=== PATIENT | male | born 1995 | race Caucasian/White ===

== ENCOUNTER 2024-09-06 09:38 | Emergency (ER) | payer OTHER, SELFPAY ==
[2024-09-06 09:43] VITALS: BP 144/95; PULSE 63; RESP 20; TEMP 36.6; O2SAT 98; BMI 26.5
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
[2024-09-06] MEDS: IBUPROFEN 200 MG TABLET 600 MG PO (10:50)
[2024-09-06 11:02] LABS: Basophils Percent Auto 0.4 % (0.0-3.0); Eosinophils Percent Auto 0.8 % (0.0-7.0); Hematocrit 48.6 % (37.0-53.0); Hemoglobin* 16.4 gm/dL (13.5-17.5); Immature Granulocytes Pct Auto 0.2 %; Lymphocytes Percent Auto 15.5 % (20-44); Mean Corpuscular HGB Conc 34 gm/dL (32-36); Mean Corpuscular Hemoglobin 30 pg (26-34); Mean Corpuscular Volume 88 fL (80-100); Monocytes Percent Auto 8.3 % (0.0-11.0); Neutrophils Percent Auto 74.8 % (42.0-72.0); Platelet Count* 282 K/uL (140-440); RDW Coefficient of Variation % 12.7 % (11.5-15.5); Red Blood Count 5.51 m/uL (4.30-5.90); White Blood Count* 13.07 K/uL (4.50-11.00)
[2024-09-06 11:04] LABS: Slide Review Reflex No
[2024-09-06 11:16] LABS: Chloride* 105 mmol/L (96-114); Potassium* 4.1 mmol/L (3.6-5.1); Sodium* 141 mmol/L (135-149)
[2024-09-06 11:18] LABS: Creatinine* 0.8 mg/dL (0.5-1.5); Est. Creatinine Clearance* 146.42; Estimated Glomerular Filt Rate 124 ml/min
[2024-09-06 11:19] LABS: Anion Gap 11 mEq/L (7-15); Blood Urea Nitrogen* 20 mg/dL (5-24); Calcium* 9.4 mg/dL (8.4-10.6); Carbon Dioxide* 25 mmol/L (20-32); Glucose* 91 mg/dL (60-115)
[2024-09-06 11:40] LABS: INR 1.01 (0.91-1.10); Prothrombin Time 13.9 Seconds
== END 2024-09-06 12:41 | disposition home or self-care (01) ==
PROVIDERS: Emergency Provider Emergency Medicine
DX: S22.009A Unspecified fracture of unspecified thoracic vertebra, initial encounter for closed fracture (principal); V48.5XXA Car driver injured in noncollision transport accident in traffic accident, initial encounter
CPT/HCPCS: 36415; 70450; 71260; 72125; 72128; 80048; 85025; 85610; 99284; 99285; A9270; Q9967

== ENCOUNTER 2024-12-14 13:39 | Emergency (ER) | payer OTHER, SELFPAY ==
[2024-12-14 13:57] VITALS: BP 128/73; PULSE 59; RESP 18; TEMP 36.6; O2SAT 98; BMI 23.4
--- NOTE | 2024-12-14 14:12 | CRLHL7_ITS ---
For Patients: As a result of the Century Cures Act, medical imaging exams and procedure reports are released immediately into your electronic medical record. You may view this report before your referring provider. If you have questions, please contact your health care provider. Indication: Chest pressure Technique: Chest 1 view Comparison: None Findings/Impression: Cardiovascular and mediastinum: Heart size and vasculature are normal in caliber and appearance. Lungs and pleural space: Lungs are clear. No sign of infiltrate or mass. No sign of pleural effusion. No pneumothorax. Bones and soft tissues: No acute findings. Dictated by Tang Bah MD @ 12/14/2024 2:37:36 PM (Electronically Signed)
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
[2024-12-14 14:43] LABS: Basophils Absolute Auto 0.06 K/uL (0.00-0.30); Basophils Percent Auto 0.7 % (0.0-3.0); Eosinophils Absolute Auto 0.08 K/uL (0.00-0.50); Eosinophils Percent Auto 0.9 % (0.0-7.0); Hematocrit 42.4 % (37.0-53.0); Hemoglobin* 14.4 gm/dL (13.5-17.5); Immature Granulocytes Abs Auto 0.08 K/uL (0.00-0.30); Immature Granulocytes Pct Auto 0.9 %; Lymphocytes Absolute Auto 1.93 K/uL (0.90-2.90); Lymphocytes Percent Auto 22.3 % (20-44); Mean Corpuscular HGB Conc 34 gm/dL (32-36); Mean Corpuscular Hemoglobin 30 pg (26-34); Mean Corpuscular Volume 89 fL (80-100); Monocytes Percent Auto 8.9 % (0.0-11.0); Neutrophils Absolute Auto 5.72 K/uL (1.7-7.0); Neutrophils Percent Auto 66.3 % (42.0-72.0); Platelet Count* 243 K/uL (140-440); RDW Coefficient of Variation % 12.7 % (11.5-15.5); Red Blood Count 4.75 m/uL (4.30-5.90); White Blood Count* 8.64 K/uL (4.50-11.00)
[2024-12-14 14:44] LABS: Slide Review Reflex No
[2024-12-14] MEDS: GI COCKTAIL (VISC LIDO/ANTACID) 30 ML PO (14:46)
[2024-12-14 15:00] LABS: Chloride* 105 mmol/L (96-114); Potassium* 3.8 mmol/L (3.6-5.1); Sodium* 143 mmol/L (135-149)
[2024-12-14 15:03] LABS: Anion Gap 11 mEq/L (7-15); Blood Urea Nitrogen* 20 mg/dL (5-24); Carbon Dioxide* 27 mmol/L (20-32); Creatinine* 0.9 mg/dL (0.5-1.5); Est. Creatinine Clearance* 130.15; Estimated Glomerular Filt Rate 119 ml/min
[2024-12-14 15:04] LABS: Glucose* 107 mg/dL (60-115)
[2024-12-14 15:06] LABS: C Reactive Protein* 0.6 mg/dL (0.5-1.0)
[2024-12-14 15:22] LABS: D Dimer Quantitative* 0.07 ug/ml (0.00-0.50)
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
== END 2024-12-14 15:37 | disposition home or self-care (01) ==
PROVIDERS: Emergency Provider Family Medicine
DX: R10.13 Epigastric pain (principal); R07.9 Chest pain, unspecified
CPT/HCPCS: 36415; 71045; 80048; 84484; 85025; 85379; 86140; 93005; 99284; A9270